=== PATIENT | female | born 1965 | race Caucasian/White ===

== ENCOUNTER 2024-04-16 21:08 | Inpatient (IN) | payer OTHER, SELFPAY ==
[2024-04-16 17:31] VITALS: BP 131/87
[2024-04-16 18:16] LABS: % Basophils 0.9 % (0-2); % Eosinophils 0.2 % (0-6); % Immature Granulocytes 0.3 % (0-0.5); % Lymphocytes 13.7 % (20.5-51.1); % Monocytes 7.8 % (1.7-9.3); % Neutrophils 77.1 % (42.2-75.2); Absolute Basophils 0.1 10^3/uL (0-0.2); Absolute Lymphocytes 1.2 10^3/uL (1.2-3.4); Absolute Monocytes 0.7 10^3/uL (0.1-0.6); Absolute Neutrophils 6.8 10^3/uL (1.4-6.5); Hematocrit 36.8 % (37.0-47.0); Hemoglobin 12.9 g/dL (12.0-16.0); Mean Corp Hgb Conc. 35.1 g/dL (33.0-37.0); Mean Corpuscular Hgb 30.2 pg (27.0-31.0); Mean Corpuscular Volume 86.2 fL (81.0-99.0); Mean Platelet Volume 9.6 fL (7.4-10.4); Nucleated Red Blood Cells % 0 %; Platelet Count 329 10^3/uL (130-400); Red Blood Cell Count 4.27 10^6/uL (4.20-5.40); Red Cell Dist. Width 12.9 % (11.5-14.5); White Blood Cell Count 8.8 10^3/uL (4.8-10.8)
[2024-04-16 18:32] LABS: ALT (SGPT) 12 U/L (0-35); AST (SGOT) 22 U/L (14-36); Albumin 4.3 g/dl (3.5-5.0); Alkaline Phosphatase 92 U/L (38-126); Blood Urea Nitrogen 10 mg/dl (7-17); Carbon Dioxide 28 mmol/L (22-30); Chloride 100 mmol/L (98-107); Glucose 101 mg/dl (70-99); Potassium 3.7 mmol/L (3.5-5.1); Sodium 135 mmol/L (135-145); Total Bilirubin 0.5 mg/dl (0.2-1.3); Total Protein 7.2 g/dl (6.3-8.2); eGFR > 60.00
--- NOTE | 2024-04-16 19:17 | ED.GENMED ---
History of Present Illness
<MAXINE Chauhan - Last Filed: 04/16/24 20:05>
General
Chief Complaint: Skin Problem
Source: patient
Exam Limitations: none
Time Seen by Provider: 04/16/24 18:44
History of Present Illness
History of Present Illness:
This is a 58 year old female that comes in with c/o facial and ear swelling. States that she was in [place] and on Sunday she had some discomfort under the jaw on the right side. States that she felt like her ear was on Fire. State that she just
didn't feel right. States that she went to and she was told that this is swimmers ear and given drops. States that last she was in her hot tub. States that the ear drops are not helping and now there is redness into her right sided of
her face.. States that she had a fever when she went to or 99.0 with chills. States that she also had a headache this morning. States that she also has diarrhea but believes this is form the food that she was eating. Denies any chest pain, SOB,
abd pain, nausea, vomiting, dizziness, urinary burning.
Past History
<MAXINE Chauhan - Last Filed: 04/16/24 20:05>
Past History
ED Past Medical History: Other (Psoriasis)
ED Past Surgical History: Cholecystectomy and Tonsilectomy
Social History
Tobacco: Non-smoker
Alcohol: Occasional
Personal:
Living: with family
Review of Systems
<MAXINE Chauhan - Last Filed: 04/16/24 20:05>
Review of Systems
All Other Systems: ROS reviewed and negative except as documented in HPI and ROS
Constitutional: Reports fever (On Sunday) and chills
EENT: Reports other (Right ear swelling )
Respiratory: Reports no symptoms; Denies cough or trouble breathing
Cardiac: Reports no symptoms; Denies chest pain
ABD/GI: Reports diarrhea; Denies abdominal pain, nausea or vomiting
: Reports no symptoms; Denies dysuria, frequency or urgency
Musculoskeletal: Reports no symptoms
Skin: Reports other (redness ear and face into neck)
Neurological: Reports headache; Denies dizzy
Psychiatric: Reports no symptoms
Phy Exam
<MAXINE Chauhan - Last Filed: 04/16/24 20:05>
General Physical Exam
General Presentation: no apparent distress
General age: appears stated age
General Skin: warm and dry
General Habitus: normal
General Mental: alert
General Hydration: appears well hydrated
ENT Exam
ENT Exam: pharynx normal, neck supple and other (right ear swelling TM is normal)
Eye Exam
Eye Exam: EOMI
Cardiovascular Exam
Cardiovascular Exam: regular rate/rhythm, no edema, no murmur and normal peripheral pulses
Pulmonary Exam
Pulmonary Exam: lungs clear, no respiratory distress, no rales, chest non tender, no crackles, no rhonchi, no wheezing and no cough
Gastrointestinal Exam
Gastrointestinal Exam: normal bowel sounds, non tender, soft, no organomegaly, no pulsatile mass and non distended
Skin Exam
Skin Exam: normal color, warm/dry, no petechia and redness (redness of the right ear into the right side of the face and down into the neck. )
Psychiatric Exam
Psychiatric Exam: normal mood/affect
Course
<MAXINE Chauhan - Last Filed: 04/16/24 20:05>
Orders/Labs/Results
Orders:
Orders
04/16/24 Dinner
Regular
At Your Request: Full Participation
Does patient need a safe tray?: No
04/16/24 18:09
C-Reactive Protein Urgent
Comment: ADD ON
Complete Blood Count/With Diff Urgent
Comprehensive Metabolic Panel Urgent
Erythrocyte Sed Rate Urgent
Comment: ADD ON
Magnesium Urgent
Comment: ADD ON
Blood Culture Urgent
SANDY Source: Blood/Venous
Specimen Description:
04/16/24 19:16
Dexamethasone Sod Phosphate [Decadron] 20 mg IV NOW STA
Famotidine [Pepcid] 20 mg IV NOW STA
04/16/24 19:35
Lactic Acid Urgent
Blood Culture Urgent
SANDY Source: Blood/Venous
Specimen Description:
Piperacillin/Tazo 3.375 Gram [Zosyn] 3.375 gram in 50 ml IV NOW
Vancomycin 1 Gram/200 ml [Vancocin] 1 gram in 200 ml IV NOW
04/16/24 19:45
Add On- LAB Urgent
Tests Added?: ESR, CRP, Magnesium
04/16/24 20:04
Ketorolac [Toradol] 30 mg IV NOW STA
04/16/24 20:18
Admit/Transfer Patient As Directed
Co-Sign Provider:
Level of Care: Inpatient admission
Assign to:: Medical/Surgical
Physician / Group: Ro Perez
Diagnosis: perichondritis versus malignant Otitis externa
Reason for Hospitalization: perichondritis versus malignant Otitis externa
Expected length of stay greater than two midnights?: Yes
ELOS- Estimated Length of Stay in days: 3
I certify the patient meets the requirements for IP care: Yes
Code Status As Directed
Resuscitation Status: Full Code
04/16/24 21:29
Acetaminophen [Tylenol] 650 mg PO Q4HPRN PRN
Bisacodyl [Dulcolax] 10 mg RECTAL [id number] PRN
Docusate W/Senna [Senokot-S] 1 tablet PO BIDPRN PRN
Ketorolac [Toradol] 15 mg IV Q6HPRN PRN
Lactated Ringers [Lr] 1,000 ml IV 80 mls/hr
Polyethylene Glycol Powder [Miralax] 17 grams PO DAILYPRN PRN
04/16/24 21:29
Consult ENT [ENT CONSULT] Routine
Consulting Provider: Gabi Colindres
Was physician already notified: Yes
Activity As Directed
Activity Level: As Tolerated
Pneumatic Compression Sleeves As Directed
Type: Knee high
Vital Signs As Directed
Frequency: Per unit guidelines
DX Deep Vein Thrombosis Video Routine
04/17/24 02:00
Piperacillin/Tazo 4.5 Gram [Zosyn] 4.5 gram in 100 ml IV Q6H
04/17/24 06:00
Basic Metabolic Panel IN AM
Complete Blood Count/With Diff IN AM
Magnesium IN AM
04/17/24 22:00
Famotidine [Pepcid] 20 mg PO HS
Abnormal Lab Results
04/16/24
18:09
Hct 36.8 L %
(37.0-47.0)
Absolute Neuts (auto) 6.8 H 10^3/uL
(1.4-6.5)
Absolute Monos (auto) 0.7 H 10^3/uL
(0.1-0.6)
Neutrophils % 77.1 H %
(42.2-75.2)
Lymphocytes % 13.7 L %
(20.5-51.1)
Glucose 101 H mg/dl
(70-99)
C-Reactive Protein 85.60 H mg/L
(0.0-10.00)
04/16/24 18:09
04/16/24 18:09
Glucose nonfasting, Lactic acid normal at 0.7
Vital Signs
Initial and Last Documented VS:
Initial Vital Signs
Temp Pulse Resp BP Pulse Ox
98.1 F 77 20 131/87 100
04/16/24 17:31 04/16/24 17:31 04/16/24 17:31 04/16/24 17:31 04/16/24 17:31
Last Documented Vital Signs
Temp Pulse Resp BP Pulse Ox
98.7 F 78 18 125/82 98
04/16/24 21:31 04/16/24 21:31 04/16/24 21:31 04/16/24 21:31 04/16/24 21:31
Contact Center Representative consulted with Physician
Contact Center Representative consulted with physician?: Yes
Name of Physician Consulted: Mello Drake
<Donte Sarkar, - Last Filed: 04/16/24 22:36>
Orders/Labs/Results
Orders:
Orders
04/16/24 Dinner
Regular
At Your Request: Full Participation
Does patient need a safe tray?: No
04/16/24 18:09
C-Reactive Protein Urgent
Comment: ADD ON
Complete Blood Count/With Diff Urgent
Comprehensive Metabolic Panel Urgent
Erythrocyte Sed Rate Urgent
Comment: ADD ON
Magnesium Urgent
Comment: ADD ON
Blood Culture Urgent
SANDY Source: Blood/Venous
Specimen Description:
04/16/24 19:16
Dexamethasone Sod Phosphate [Decadron] 20 mg IV NOW STA
Famotidine [Pepcid] 20 mg IV NOW STA
04/16/24 19:35
Lactic Acid Urgent
Blood Culture Urgent
SANDY Source: Blood/Venous
Specimen Description:
Piperacillin/Tazo 3.375 Gram [Zosyn] 3.375 gram in 50 ml IV NOW
Vancomycin 1 Gram/200 ml [Vancocin] 1 gram in 200 ml IV NOW
04/16/24 19:45
Add On- LAB Urgent
Tests Added?: ESR, CRP, Magnesium
04/16/24 20:04
Ketorolac [Toradol] 30 mg IV NOW STA
04/16/24 20:18
Admit/Transfer Patient As Directed
Co-Sign Provider:
Level of Care: Inpatient admission
Assign to:: Medical/Surgical
Physician / Group: Ro Perez
Diagnosis: perichondritis versus malignant Otitis externa
Reason for Hospitalization: perichondritis versus malignant Otitis externa
Expected length of stay greater than two midnights?: Yes
ELOS- Estimated Length of Stay in days: 3
I certify the patient meets the requirements for IP care: Yes
Code Status As Directed
Resuscitation Status: Full Code
04/16/24 21:29
Acetaminophen [Tylenol] 650 mg PO Q4HPRN PRN
Bisacodyl [Dulcolax] 10 mg RECTAL [id number] PRN
Docusate W/Senna [Senokot-S] 1 tablet PO BIDPRN PRN
Ketorolac [Toradol] 15 mg IV Q6HPRN PRN
Lactated Ringers [Lr] 1,000 ml IV 80 mls/hr
Polyethylene Glycol Powder [Miralax] 17 grams PO DAILYPRN PRN
04/16/24 21:29
Consult ENT [ENT CONSULT] Routine
Consulting Provider: Gabi Colindres
Was physician already notified: Yes
Activity As Directed
Activity Level: As Tolerated
Pneumatic Compression Sleeves As Directed
Type: Knee high
Vital Signs As Directed
Frequency: Per unit guidelines
DX Deep Vein Thrombosis Video Routine
04/17/24 02:00
Piperacillin/Tazo 4.5 Gram [Zosyn] 4.5 gram in 100 ml IV Q6H
04/17/24 06:00
Basic Metabolic Panel IN AM
Complete Blood Count/With Diff IN AM
Magnesium IN AM
04/17/24 22:00
Famotidine [Pepcid] 20 mg PO HS
Abnormal Lab Results
04/16/24
18:09
Hct 36.8 L %
(37.0-47.0)
Absolute Neuts (auto) 6.8 H 10^3/uL
(1.4-6.5)
Absolute Monos (auto) 0.7 H 10^3/uL
(0.1-0.6)
Neutrophils % 77.1 H %
(42.2-75.2)
Lymphocytes % 13.7 L %
(20.5-51.1)
Glucose 101 H mg/dl
(70-99)
C-Reactive Protein 85.60 H mg/L
(0.0-10.00)
04/16/24 18:09
04/16/24 18:09
Vital Signs
Initial and Last Documented VS:
Initial Vital Signs
Temp Pulse Resp BP Pulse Ox
98.1 F 77 20 131/87 100
04/16/24 17:31 04/16/24 17:31 04/16/24 17:31 04/16/24 17:31 04/16/24 17:31
Last Documented Vital Signs
Temp Pulse Resp BP Pulse Ox
98.7 F 78 18 125/82 98
04/16/24 21:31 04/16/24 21:31 04/16/24 21:31 04/16/24 21:31 04/16/24 21:31
<MAXINE Chauhan - Last Filed: 04/16/24 20:05>
MDM/Problems Addressed
Differential Diagnosis Includes:
Cellulitis right ear and face,
MDM/Problems Addressed:
This is a 58 year old female that comes in with c/o redness and swelling of the right ear and face. States that this started on Sunday. Patient was seen at and told that this was swimmers ear and given drops that are not helping
will get labs, given steroid pepcid and Antibiotics.
Back into see patient. Patient will be admitted. Dr. Sarkar spoke with Dr. Colindres. Hospitalist notified and patient started on IV antibiotics.
Chronic conditions affecting care:
NA
Acute Exacerbation and/or Progression of Chronic Illness:
NA
<MAXINE Chauhan - Last Filed: 04/16/24 20:05>
*Pulse Oximetry
Patient hypoxic: no
*EKG
Interpreted by ED Provider?: NA
Rate: EKG- N/A
*Cryptologic Technician Operator/Analyst Interpretation
Rate: Cryptologic Technician Operator/Analyst- N/A
*Critical Care Note
Total Time (30-74mins, 75-104mins- exclusive of procedures): Not Applicable
ED Attending Note
<MAXINE Chauhan - Last Filed: 04/16/24 20:05>
-
Portions of this chart may have been created with voice recognition software.� Occasional wrong word or��sound alike� substitutions may have occurred due to the inherent limitations of voice recognition software.
<Donte Sarkar DO - Last Filed: 04/16/24 22:36>
ED Attending Note
Patient seen and examined by attending physician: Yes
I performed the substantive portion of visit, reviewed & personally made and approve the management plan that is documented in note by myself or SALVADOR.: Yes
ED Attending Note:
58-year-old female who presents with swelling of the right ear and redness of the right ear face. Originally seen in [place] was given antibiotic eardrops. Patient is unsure if they were able to fully penetrate but she did not have any earwax.
The patient presents with persistent redness and swelling and states it really 'blew up'. She denies fevers. Said it was never itchy. Was in a hot tub recently and going underwater which she does not typically do. Exam: Markedly swollen right
ear. I am able to see her TM which appears normal. The right ear is swollen and red with more pain with movement of the pinna. Redness extends into the right face and right neck. Mastoid is not tender. Assessment and plan: Cover Pseudomonas
with IV antibiotics. Case discussed with ENT Dr. Colindres.
Discharge Plan
Departure
Patient Disposition: Admit
Date of Disposition: 04/16/24
Time of Disposition: 19:41
Admit to: Med/Surg
Presentation/result/management discussed w/ accepting MD/DO: Hospitalist
Patient with high blood pressure during this ER visit?: Yes
Condition: Good
Discharge Problem:
right sided ear and facial cellulitis
Interventions
Interventions:
*Risk Screen - Suicide Last Done: 04/16/24 17:31
*General Assessment Last Done: 04/16/24 17:31
*Neglect/Abuse Screening Last Done: 04/16/24 17:31
ED- Fall Risk Assessment Last Done: 04/16/24 21:24
*ED COVID-19 Vaccine History Last Done: 04/16/24 19:52
*Nursing Disposition Last Done: 04/16/24 21:24
ED-Skin Assessment Last Done: 04/16/24 19:52
Discharge Date and Time
Discharge Date/Time: 04/16/24 21:25
[2024-04-16] MEDS: PEPCID 20 MG IV (19:35)
[2024-04-16] MEDS: DECADRON 20 MG IV (19:35)
--- NOTE | 2024-04-16 19:38 | HPS.HSE ---
Family Physician
-
Family Physician: Remberto Meléndez
Chief Complaint
-
facial and ear swelling
History of Present Illness
Ms. Judith Delatorre is a 58 yo woman who presents to the ER with right-sided facial pain x 2-3 days. She initially felt she slept on face the wrong way then had burning pain in ear. Pain and swelling progressed. She went to urgent care and was
prescribed ear drops without relief. This morning she saw redness extending to side of cheek. She has been taking Advil for pain, last dose at noon.
No fevers but has felt flushed and had chills. No headache. No nausea/vomiting. She has been eating and drinking ok. No rash.
She has no medical history and takes no medications. History of tonsillectomy and cholecystectomy.
Medical History
Past Medical History
Past Medical History: Reports None
Past Surgical History: Reports Cholecystectomy and Tonsilectomy
Social History
Tobacco: Non-smoker
Alcohol: Occasional
Family History
Family History: Not pertinent
Allergies / Home Medications
Allergies reflects when Allergies were last updated in [employer].
Home Medications with original date entered in [employer]
Allergy/Medication List:
Allergies
Allergy/AdvReac Type Severity Reaction Status Date / Time
No Known Allergies Allergy Verified 04/16/24 17:34
Home Medications
No Meds [No Current Medications] 04/16/24
Review of Systems
-
History Source: Patient
A 12 point ROS was completed and negative except as noted: Yes
Physical Exam
Vital Signs
Vital Signs
Temp Pulse Resp BP Pulse Ox
98.1 F 77 20 131/87 100
04/16/24 17:31 04/16/24 17:31 04/16/24 17:31 04/16/24 17:31 04/16/24 17:31
Physical Exam
General: No Apparent Distress
HEENT: PERRLA and Other (right swelling of outer ear without obvious drainage; normal TM; mild tenderness mastoid process and along jaw )
Respiratory: Clear; No Wheezes
Cardiac: S1/S2 and Regular Rhythm
GI: Soft and Non Tender
Musculoskeletal: No Edema
Skin: Warm and Dry; No Rash
Neuro: AO x 3
Psych: Calm
Laboratory Results
-
04/16/24 18:09
04/16/24 18:09
Laboratory Results
Total Bilirubin 0.5 mg/dl (0.2-1.3) 04/16/24 18:09
AST 22 U/L (14-36) 04/16/24 18:09
ALT 12 U/L (0-35) 04/16/24 18:09
Alkaline Phosphatase 92 U/L (38-126) 04/16/24 18:09
Data Reviewed
-
Diagnostic Radiology: Report Reviewed by me
Lab Data: Labs Reviewed by me
Impression/Plan
-
Ms. Judith Delatorre is a 58 yo woman wh presents to the ER with right-sided facial pain since Sunday.
Triage VS: T 98.1, P 77, RR 20, BP 131/87, SpO2 100%
LABS: WBC 8.8, Hg 12.9, PLT 329, Na 139, K+ 3.7, CO2 28, BUN 10, Cr 0.6, Glucose 101, T. Bili 0.5, AST 22, ALT 12, Alk Phos 92
MAR: IV Decadron, IV Vanc/Zosyn
Perichondritis of ear versus malignant otitis externa
-with rapid growth patient requires inpatient admission for IV antibioitics
-s/p IV Decadron 20mg, IV Vanc/Zosyn given in the ER
-Per Dr. Colindres, more likely perichondritis. OK to hold off on CT for now. Will continue IV antibiotics + steroids per ENT recs
-IV Vanc/Zosyn (pseudomonas dosing)
-IV Decadron 8mg q 8 x 3 doses
-IVF
-pain control with tylenol/ IV Toradol PRN
-pepcid qhs for GI PPx while on toradol and high dose steroids
DVT PPx SCD
FULL CODE
[2024-04-16] MEDS: ZOSYN 50 IV (19:45)
[2024-04-16 19:59] LABS: Lactic Acid 0.7 mmol/L (0.7-2.0)
[2024-04-16 20:04] LABS: Erythrocyte Sed Rate 15 mm/hour (0-20)
[2024-04-16] MEDS: VANCOCIN 200 IV ×2 (20:18→22:06)
[2024-04-16] MEDS: TORADOL 30 MG IV (20:21)
[2024-04-16 21:31] VITALS: BP 125/82
[2024-04-16 21:41] VITALS: BMI 22.9
[2024-04-16] MEDS: LR 1000 IV (21:44)
--- NOTE | 2024-04-16 21:52 | PHA.VAN.IN ---
Assessment
- Assessment
Renal Function: Appears similar to baseline
Concomitant Antimicrobials: ZOSYN
- Previous Dosing Experience
Previous Regimen: NONE
AUC Dosing Plan
- Empiric Dosing
Initial / Loading Dose: 2GM TOTAL
Maintenance Regimen: 1GM IV Q12H
Estimated AUC (mcg*h/mL): 460
Estimated Peak (mcg*h/mL): 29.6
Estimated Trough (mcg/ml): 11.3
Estimated Half Life (H): 7.9
Pharmacokinetics Vancomycin I
- -
Patient Age: 58
Patient Sex: Female
Vancomycin Day #: 1
Indication: Eye Or Ent Infection (PERICHONDRITIS)
Requesting Provider: SINDI
Height / Weight:
Height 5 ft 4 in
Actual Weight 60.464 kg
- Vital Signs / Lab Results
Temp Pulse Resp BP Pulse Ox
98.7 F 78 18 125/82 98
04/16/24 21:31 04/16/24 21:31 04/16/24 21:31 04/16/24 21:31 04/16/24 21:31
Lab Results - Hematology
04/16/24
18:09
WBC 8.8
Lab Results - Chemistry
04/16/24
18:09
BUN 10
Creatinine 0.6
Albumin 4.3
04/16/24
19:35
Lactic Acid 0.7
--- NOTE | 2024-04-16 22:26 | PTCARENOTE ---
Received pt from ER @ [id number]. AAOx3, VSS, ambulatory in room. Oriented to room, call amin and plan of care.
[2024-04-16 23:08] VITALS: BP 128/88
[2024-04-17] MEDS: ZOSYN 100 IV ×4 (01:52→19:29)
[2024-04-17] MEDS: VANCOCIN 200 IV (05:45)
[2024-04-17] MEDS: DECADRON 8 MG IV ×3 (05:46→21:46)
[2024-04-17 06:17] LABS: % Basophils 0.1 % (0-2); % Immature Granulocytes 0.3 % (0-0.5); % Lymphocytes 6.3 % (20.5-51.1); % Monocytes 1.4 % (1.7-9.3); % Neutrophils 91.9 % (42.2-75.2); Absolute Lymphocytes 0.5 10^3/uL (1.2-3.4); Absolute Monocytes 0.1 10^3/uL (0.1-0.6); Absolute Neutrophils 6.5 10^3/uL (1.4-6.5); Hematocrit 38.6 % (37.0-47.0); Hemoglobin 13.5 g/dL (12.0-16.0); Mean Corpuscular Volume 85.8 fL (81.0-99.0); Mean Platelet Volume 9.9 fL (7.4-10.4); Nucleated Red Blood Cells % 0 %; Platelet Count 324 10^3/uL (130-400); Red Cell Dist. Width 12.5 % (11.5-14.5); White Blood Cell Count 7.1 10^3/uL (4.8-10.8)
[2024-04-17 06:41] LABS: Blood Urea Nitrogen 8 mg/dl (7-17); Calcium 10.1 mg/dl (8.4-10.2); Chloride 103 mmol/L (98-107); Estimated Creatinine Clearance 89 ml/min; Glucose 196 mg/dl (70-99); Potassium 4.2 mmol/L (3.5-5.1); Sodium 135 mmol/L (135-145); eGFR > 60.00
[2024-04-17 06:53] LABS: Carbon Dioxide 25 mmol/L (22-30)
[2024-04-17 07:00] VITALS: BP 143/86
[2024-04-17] MEDS: TORADOL 15 MG IV ×2 (08:08→21:47)
[2024-04-17] MEDS: TYLENOL 650 MG PO (09:12)
[2024-04-17 09:21] VITALS: BMI 23.0
--- NOTE | 2024-04-17 09:34 | PHA.VAN.FU ---
Vancomycin Assessment / Plan
- Assessment
Renal Function: Stable
WBC's are: WNL
In the past 24 hrs, patient has been: Afebrile
Concomitant Antimicrobials: piperacillin/tazobactam
- Dosing Plan
Adjust Regimen to: Vanc 750mg Q12H starting at 1800
New Regimen Predicts: AUC (468), Peak (28.9), Trough (12.2)
Weight originally recorded as ~86kg. Confirmed with nursing, patient weighs ~61kg. Adjusting vancomycin dose.
- Monitoring Plan
No level(s) ordered at this time: consider levels in next few days
- Follow Up
Pharmacy will continue to follow.
Vancomycin Follow UP
- -
Patient Age: 58
Patient Sex: Female
Vancomycin Day #: 2
Indication: Eye Or Ent Infection
Requesting Provider: Dr. Perez
Pertinent Antimicrobial Allergies:
NKDA
Height / Weight:
Height 5 ft 4 in
Actual Weight 60.827 kg
- Vital Signs / Lab Results
Temp Pulse Resp BP Pulse Ox
97.8 F 60 16 143/86 98
04/17/24 07:00 04/17/24 07:00 04/17/24 07:00 04/17/24 07:00 04/17/24 07:00
Lab Results - Hematology
04/16/24 04/17/24
18:09 06:07
WBC 8.8 7.1
Lab Results - Chemistry
04/16/24 04/17/24
18:09 06:07
BUN 10 8
Creatinine 0.6 0.6
Estimated Creat Clear 89
Albumin 4.3
04/16/24
19:35
Lactic Acid 0.7
--- NOTE | 2024-04-17 10:31 | CON.MD ---
Consultation - Medical
-
swollen R ear
58 yo presents c 2-3 day of pain and swelling R ear, extending to R cheek
No PMH of note, hx psoriasis
Was in hot tub and went underwater recently
PE - afebrile, nontoxic
R ear c cellulitis of auricle, some erythema R cheek
Ear canal itself not swollen , TM normal
A/P R auricular cellulitis /chondritis
Usually pseudomonal, can occur from hot tub contamination
Some improvement on present antibx and was given steroids
Continue IV antibx today, 2-3 doses total of steroid
Likely can d/c tomorrow on po Levaquin for pseudomonal / staph coverage
Follow up ENT as outpt
--- NOTE | 2024-04-17 10:42 | CM ---
Patient seen bedside, initial assessment completed. Patient resides independently in a multiple story home, 10 steps to enter. Patient denies DME, VN, or SNF history. Patient reports PCP Jasper Uribe, pharmacy [facility], confirms
prescription coverage. Patient denies food insecurities at home. CM will continue to follow for all discharge planning needs.
Plan; home no needs.
[2024-04-17 15:00] VITALS: BP 125/71
[2024-04-17] MEDS: BENADRYL 25 MG PO ×2 (15:16→21:46)
--- NOTE | 2024-04-17 16:44 | W.PN.HOSP.TC ---
Today's Communication/Plan
-
pt to receive 3 doses of steroids
will stop IVF
Assessment / Plan
Assessment / Plan
Perichondritis of ear versus malignant otitis externa
-with rapid growth patient requires inpatient admission for IV antibioitics
-s/p IV Decadron 20mg, IV Vanc/Zosyn given in the ER
-Per Dr. Colindres, more likely perichondritis. OK to hold off on CT for now. Will continue IV antibiotics + steroids per ENT recs
-IV Vanc/Zosyn (pseudomonas dosing)
-IV Decadron 8mg q 8 x 3 doses
-will stop IVF
-pain control with tylenol/ IV Toradol PRN
-pepcid qhs for GI PPx while on toradol and high dose steroids
input of Dr. Schmitt noted and appreciated
DVT PPx SCD
FULL CODE
Anticipated Discharge: 24 - 48 hours
Subjective/Interval History
-
Date of Service: April 17, 2024
Still with ear pain
Objective Data
-
Labs:
Laboratory Results
04/17/24
06:07
WBC 7.1
Hgb 13.5
Hct 38.6
Plt Count 324
Sodium 135
Potassium 4.2
Chloride 103
Carbon Dioxide 25
BUN 8
Creatinine 0.6
Glucose 196 H
Calcium 10.1
Vital Signs:
Vital Signs
Temp Pulse Resp BP Pulse Ox
98.2 F 57 16 125/71 98
04/17/24 15:00 04/17/24 15:00 04/17/24 15:00 04/17/24 15:00 04/17/24 15:00
I&O
04/16/24 04/17/24 04/18/24
06:59 06:59 06:59
Intake Total 1140 / 1140
Balance 1140 / 1140
Review of Systems
-
History Source: Patient and Family ( at bedside)
Constitutional: Reports No Symptoms; Denies Fever
EENT: Reports Other (rt ear pain)
Respiratory: Reports No Symptoms
Cardiac: Reports No Symptoms
Abdomen/GI: Reports No Symptoms
Physical Exam
-
General: Well Developed, Well Nourished and No Apparent Distress
HEENT: Normocephalic, Atraumatic and Other (rt ear canal with erythema on otoscopic evaluation)
Cardiac: Regular Rhythm and S1/S2
GI: Soft, Nontender and Nondistended
Neuro: Awake, Alert and Oriented
[2024-04-17] MEDS: VANCOCIN 150 IV (17:23)
[2024-04-17] MEDS: PEPCID 20 MG PO (21:47)
[2024-04-17 23:00] VITALS: BP 127/78
[2024-04-18] MEDS: ZOSYN 100 IV ×3 (02:38→13:34)
[2024-04-18] MEDS: VANCOCIN 150 IV (06:05)
[2024-04-18 07:13] LABS: % Basophils 0.1 % (0-2); % Immature Granulocytes 0.6 % (0-0.5); % Lymphocytes 6.2 % (20.5-51.1); % Monocytes 5.8 % (1.7-9.3); % Neutrophils 87.3 % (42.2-75.2); Absolute Immature Granulocytes 0.1 10^3/uL (0-0.05); Absolute Lymphocytes 0.9 10^3/uL (1.2-3.4); Absolute Monocytes 0.8 10^3/uL (0.1-0.6); Absolute Neutrophils 12.5 10^3/uL (1.4-6.5); Hematocrit 40.7 % (37.0-47.0); Hemoglobin 14.1 g/dL (12.0-16.0); Mean Corp Hgb Conc. 34.6 g/dL (33.0-37.0); Mean Corpuscular Hgb 29.9 pg (27.0-31.0); Mean Corpuscular Volume 86.2 fL (81.0-99.0); Mean Platelet Volume 10.5 fL (7.4-10.4); Nucleated Red Blood Cells % 0 %; Platelet Count 371 10^3/uL (130-400); Red Blood Cell Count 4.72 10^6/uL (4.20-5.40); Red Cell Dist. Width 12.4 % (11.5-14.5); White Blood Cell Count 14.3 10^3/uL (4.8-10.8)
[2024-04-18 07:51] LABS: Blood Urea Nitrogen 14 mg/dl (7-17); Calcium 10.3 mg/dl (8.4-10.2); Carbon Dioxide 29 mmol/L (22-30); Chloride 102 mmol/L (98-107); Estimated Creatinine Clearance 67 ml/min; Glucose 156 mg/dl (70-99); Potassium 4.5 mmol/L (3.5-5.1); Sodium 137 mmol/L (135-145); eGFR > 60.00
[2024-04-18 08:03] VITALS: BP 142/81
--- NOTE | 2024-04-18 09:36 | CM ---
Chart reviewed and patine is for discharge to home today no needs.
Plan; Home no needs.
--- NOTE | 2024-04-18 11:24 | W.PN.HOSP.TC ---
Today's Communication/Plan
-
dc to home after next dose of Zosyn, relayed to ALFONZO Matos
Assessment / Plan
Assessment / Plan
Perichondritis of ear versus malignant otitis externa
-with rapid growth patient required inpatient admission for IV antibioitics
-s/p IV Decadron 20mg, IV Vanc/Zosyn given in the ER
-Input of Dr. Schmitt appreciated
-IV Vanc/Zosyn (pseudomonas dosing)
-IV Decadron 8mg q 8 x 3 doses
- stopped IVF
-pain control with tylenol/ IV Toradol PRN
-pepcid qhs for GI PPx while on toradol and high dose steroids
DVT PPx SCD
FULL CODE
dc now
follow up with ENT
Anticipated Discharge: Today
Subjective/Interval History
-
Date of Service: April 18, 2024
Feels much better
Objective Data
-
Labs:
Laboratory Results
04/18/24
06:55
WBC 14.3 H
Hgb 14.1
Hct 40.7
Plt Count 371
Sodium 137
Potassium 4.5
Chloride 102
Carbon Dioxide 29
BUN 14
Creatinine 0.8
Glucose 156 H
Calcium 10.3 H
Vital Signs:
Vital Signs
Temp Pulse Resp BP Pulse Ox
97.8 F 78 16 142/81 100
04/18/24 08:03 04/18/24 08:03 04/18/24 08:03 04/18/24 08:03 04/18/24 08:03
I&O
04/17/24 04/18/24 04/19/24
06:59 06:59 06:59
Intake Total 1140 / 1140 1350 / 1350
Balance 1140 / 1140 1350 / 1350
Review of Systems
-
History Source: Patient, Physician (reviewed with Dr. Schmitt by phone) and Coordinated Provider
Constitutional: Reports No Symptoms; Denies Fever
EENT: Reports Other (rt ear pain)
Respiratory: Reports No Symptoms
Cardiac: Reports No Symptoms
Abdomen/GI: Reports No Symptoms
Physical Exam
-
General: Well Developed, Well Nourished and No Apparent Distress
HEENT: Normocephalic, Atraumatic and Other (decrease in submandibular lymphadenopathy)
Cardiac: Regular Rhythm and S1/S2
GI: Soft, Nontender and Nondistended
Neuro: Awake, Alert and Oriented
--- NOTE | 2024-04-18 11:41 | W.DS.TRANS ---
DC Summary - [facility]
-
Discharge Instructions:
Discharge Diagnosis/Procedures Auricular cellulitis
Diet Regular
Activity No restrictions
Driving Restrictions Not until seen by your Dr
Bathing Restrictions None
Instructions:
Stand-Alone Forms:
Changes to Home Medications: Yes
Discharge Medications:
DC Medications w/original date entered in [employer]
doxycycline hyclate 100 mg capsule 100 mg PO BID #20 caps 04/18/24
levofloxacin 500 mg tablet 500 mg PO DAILY 10 days #10 tabs 04/18/24
Home Medication Changes
both antibiotics started
Pending Results: Yes
Additional Pending Results:
Blood cultures are negative to date, but have not been finalized
MRSA nasal swab is pending
--- NOTE | 2024-04-18 12:52 | PHA.VAN.FU ---
Vancomycin Assessment / Plan
- Assessment
Renal Function: Stable
WBC's are: Trending Up
In the past 24 hrs, patient has been: Afebrile
Concomitant Antimicrobials: piperacillin/tazo
- Dosing Plan
Continue: vanc 750 mg q12h till dischrge today
- Monitoring Plan
No level(s) ordered at this time: pt to be discharged after next dose of zosyn today
- Follow Up
Pharmacy will continue to follow.
Vancomycin Follow UP
- -
Patient Age: 58
Patient Sex: Female
Vancomycin Day #: 3
Indication: Eye Or Ent Infection
Requesting Provider: Dr. Perez
Pertinent Antimicrobial Allergies:
NKDA
Height / Weight:
Height 5 ft 4 in
Actual Weight 60.827 kg
- Vital Signs / Lab Results
Temp Pulse Resp BP Pulse Ox
97.8 F 78 16 142/81 100
04/18/24 08:03 04/18/24 08:03 04/18/24 08:03 04/18/24 08:03 04/18/24 08:03
Lab Results - Hematology
04/16/24 04/17/24 04/18/24
18:09 06:07 06:55
WBC 8.8 7.1 14.3 H
Lab Results - Chemistry
04/16/24 04/17/24 04/18/24
18:09 06:07 06:55
BUN 10 8 14
Creatinine 0.6 0.6 0.8
Estimated Creat Clear 89 67
Albumin 4.3
04/16/24
19:35
Lactic Acid 0.7
Microbiology Results
04/16/24 19:35 Blood Culture - Preliminary
Blood/Venous No Growth in 24 hours- Final report to follow
04/16/24 18:09 Blood Culture - Preliminary
Blood/Venous No Growth in 24 hours- Final report to follow
== END 2024-04-18 16:58 | disposition home or self-care (01) | DRG 156 ==
LOC: 4 WEST ACU 21:08
PROVIDERS: Clinical Nurse Specialist Family Health; Emergency Medicine; ADMITTING PHYSICIAN Student in an Organized Health Care Education/Training Program; ATTENDING PHYSICIAN Internal Medicine; EMERGENCY PHYSICIAN Emergency Medicine; FAMILY PHYSICIAN Family Medicine; OTHER PHYSICIAN Otolaryngology
DX: H60.11 Cellulitis of right external ear (principal); H61.031 Chondritis of right external ear; L40.9 Psoriasis, unspecified; D72.829 Elevated white blood cell count, unspecified; R73.9 Hyperglycemia, unspecified; T38.0X5A Adverse effect of glucocorticoids and synthetic analogues, initial encounter
CPT/HCPCS: 80048; 80053; 83605; 83735; 85025; 85652; 86140; 87040; 87070; 96365; 96367; 96375; 99284